=== PATIENT | female | born 1965 | race Caucasian/White ===

== ENCOUNTER 2019-06-01 16:12 | Emergency (ER) | payer MEDICAID, OTHER ==
[~2019-06-01] VITALS: Ht 152.4 cm; Wt 45.4 kg
--- NOTE | 2019-06-01 18:00 | NUR ---
KEESHA HIDALGO LVN IRRIGATED THE RIGHT EAR. A PIECE OF WAX CAME OUT. PT SAID FEELS BETTER.
--- NOTE | 2019-06-01 18:10 | NUR ---
Patient discharged to home in stable conditon. Written and verbal after care instructions given. Patient verbalizes understanding of instructions.PT WALKS I NSTEADY GAIT.
== END 2019-06-01 18:10 | disposition home or self-care (01) ==
LOC: ER 16:14
DX: T16.1XXA Foreign body in right ear, initial encounter (principal); X58.XXXA Exposure to other specified factors, initial encounter; Y93.89 Activity, other specified; Y92.89 Other specified places as the place of occurrence of the external cause; Y99.8 Other external cause status
CPT/HCPCS: A4663

== ENCOUNTER 2020-06-19 16:07 | Emergency (ER) | payer MEDICAID ==
[~2020-06-19] VITALS: Ht 160 cm; Wt 47.6 kg
--- NOTE | 2020-06-19 16:27 | NUR ---
at bedside for assessment
[2020-06-19] MEDS ORDERED: KETOROLAC TROMETHAMINE 60 MG INJ IM ONE ×2 (17:42→17:45)
--- NOTE | 2020-06-19 18:13 | NUR ---
Patient discharged to home in stable condition. Written and verbal after care instructions given. Patient verbalizes understanding of instructions. Stressed follow up or return to ER for worsening s/s.
[2020-06-19 18:30] VITALS: BP 104/63
== END 2020-06-19 18:13 | disposition home or self-care (01) ==
LOC: ER 16:30
DX: R51.9 Headache, unspecified (principal); S09.90XA Unspecified injury of head, initial encounter; W20.8XXA Other cause of strike by thrown, projected or falling object, initial encounter; Y92.89 Other specified places as the place of occurrence of the external cause; J43.9 Emphysema, unspecified; M50.21 Other cervical disc displacement, high cervical region; E07.9 Disorder of thyroid, unspecified; M50.322 Other cervical disc degeneration at C5-C6 level
CPT/HCPCS: 70450; 72125; 96372; 99285; J1885; A4663

== ENCOUNTER 2020-06-21 20:36 | Emergency (ER) | payer MEDICAID ==
[~2020-06-21] VITALS: Ht 157.5 cm; Wt 49.9 kg
--- NOTE | 2020-06-21 21:06 | NUR ---
Patient refused pain medication at bedside due to driving herself to the ER, opted to use medication from prescription once she gets home instead.
--- NOTE | 2020-06-21 21:06 | NUR ---
MD MICHELLE CURRY in room to do MSE
[2020-06-21] MEDS ORDERED: HYDR2TAB4 PO (21:13)
[2020-06-21] MEDS ORDERED: ONDA4TAB11 PO (21:13)
[2020-06-21 21:20] VITALS: BP 114/68
--- NOTE | 2020-06-21 21:20 | NUR ---
Patient discharged to home in stable condition. Written and verbal after care instructions given. Patient verbalizes understanding of instructions. Stressed follow up or return to ER for worsening s/s. Patient ambulates with steady gait, received Rx, left with all belongings.
== END 2020-06-21 21:20 | disposition home or self-care (01) ==
LOC: ER 20:36
DX: R51.9 Headache, unspecified (principal); F17.210 Nicotine dependence, cigarettes, uncomplicated; J43.9 Emphysema, unspecified; G89.4 Chronic pain syndrome
CPT/HCPCS: A4663

== ENCOUNTER 2021-05-17 18:30 | Emergency (ER) | payer MEDICAID ==
[~2021-05-17] VITALS: Ht 157.5 cm; Wt 49.4 kg
[~2021-05-17 18:30] MED LIST: HYDR2TAB4 PO; ONDA4TAB11 PO
[2021-05-17] MEDS ORDERED: OXYCODONE/APAP 5-325 MG TABLET PO ONE (20:15)
[2021-05-17] MEDS ORDERED: OXYCODONE/APAP 5-325 MG TABLET ONE (20:17)
[2021-05-17] MEDS ORDERED: HYDR2TAB4 PO (21:13)
--- NOTE | 2021-05-17 21:23 | NUR ---
Patient discharged to home in stable condition. Written and verbal after care instructions given. Patient verbalizes understanding of instructions. Stressed follow up or return to ER for worsening s/s. Patient is taking an Uber home.
[2021-05-17 21:24] VITALS: BP 118/68
== END 2021-05-17 21:24 | disposition home or self-care (01) ==
LOC: ER 18:34
DX: S20.219A Contusion of unspecified front wall of thorax, initial encounter (principal); S16.1XXA Strain of muscle, fascia and tendon at neck level, initial encounter; V49.40XA Driver injured in collision with unspecified motor vehicles in traffic accident, initial encounter; Y92.410 Unspecified street and highway as the place of occurrence of the external cause; J43.9 Emphysema, unspecified
CPT/HCPCS: 71101; 71120; 72040; A4663